=== PATIENT | female | born 1935 | race Caucasian/White ===

== ENCOUNTER → 2016-10-09 | Outpatient (CLI) | payer MEDICARE, BC ==
--- NOTE | ~2016-10-09 | EE ---
Unit #: [id number] #: [id number] Patient: SHERWIN WILLOUGHBY [id number] [address] [address] [id number] O MR#: [id number] NAME: SHERWIN WILLOUGHBY. : 1935 SEX: F STUDY DATE/TIME: 10/09/2016 UNIT: CEEG ROOM: STUDY DESCRIPTION: Attending Physician: Shanti Covington M.D. Referring Physician: Shanti Covington M.D. Primary Care Physician: Generic Doctor Not In System NEURODIAGNOSTICS REPORT EXAM EEG. REASON FOR STUDY Seizures. TECH Hillary. TECHNINAL INFORMATION Routine EEG performed using the standard international 10/20 system with electrode placement. Photic stimulation was performed. Hyperventilation was not performed. REPORT Throughout the entire study the best background rhythm seen is approximately 8 to 9 Hz. This rhythm is seen in both posterior head regions symmetrically and does attenuate to eye opening and closure. Photic stimulation was performed which did not elicit any epileptiform abnormalities; however, a decent photic driving response was seen. Hyperventilation was not performed. Throughout the entire study, there were no electrocardiographic seizures recorded. There were no independent epileptiform abnormalities seen. There was some mild temporal artifact noted bilaterally throughout the study, however. No sleep was recorded during the EEG. There was also some frontal artifact seen likely related to movement. INTERPRETATION This is a normal awake EEG. A normal EEG does not rule out the possibilities of seizure disorder. Clinical correlation is advised. Dictated by... Avery Matos II., M.D. GWS/jaswinder TD: 10/30/2016 11:14 JOB #: [id number] Unit #: [id number] #: [id number] Patient: SHERWIN WILLOUGHBY NEURODIAGNOSTICS REPORT Page 1 of 1 X NEURODIAGNOSTICS REPORT
== END | disposition home or self-care (01) ==
LOC: CEEG 10:03
DX: R55 Syncope and collapse (principal)
CPT/HCPCS: 36415; 85652; 86140; 95816